=== PATIENT | female | born 1940 | race Two or more races ===

== ENCOUNTER 2019-04-05 06:15 | Emergency (ER) | payer MEDICARE, MEDICAID ==
[~2019-04-05] VITALS: Ht 147.3 cm; Wt 62.6 kg
[2019-04-05] MEDS ORDERED: RANI150T7 PO (06:22)
[2019-04-05] MEDS ORDERED: AMLO10TA7 PO (06:22)
[2019-04-05] MEDS ORDERED: EZET10TA13 PO (06:22)
[2019-04-05] MEDS ORDERED: OXYB5 PO (06:22)
[2019-04-05] MEDS ORDERED: DONE10TA8 PO (06:22)
[2019-04-05] MEDS ORDERED: LISI-662 PO (06:22)
[2019-04-05] MEDS ORDERED: ATOR40TA28 PO (06:22)
[2019-04-05] MEDS ORDERED: ASPI-556 PO (06:22)
[2019-04-05] MEDS ORDERED: SIMV-261 PO (06:26)
[2019-04-05] MEDS ORDERED: HYDR25TA PO (06:26)
[2019-04-05] MEDS ORDERED: METO25 PO (06:26)
[2019-04-05] MEDS: NITROGLYCERIN 0.4 MG SUBLINGUAL TABLET #25 SL ONE ×2 (07:11→07:17)
[2019-04-05] MEDS: ASPIRIN 81 MG CHEWABLE TABLET PO ONE ×2 (07:12→07:17)
[2019-04-05 07:13] LABS: BASOPHILS % (AUTO) 0.8 % (0.0-2.0); EOSINOPHILS % (AUTO) 1.9 % (1.0-6.0); HEMATOCRIT 43.5 % (36-46); HEMOGLOBIN 14.9 g/dL (12.0-16.0); LYMPHOCYTES # (AUTO) 1.9 K/uL (1.0-4.8); LYMPHOCYTES % (AUTO) 29.1 % (22.0-44.0); MEAN CORPUSCULAR HEMOGLOBIN 30.6 pg (26.0-34.0); MEAN CORPUSCULAR HGB CONC 34.3 G/dL (31.0-37.0); MEAN CORPUSCULAR VOLUME 89 fL (80-100); MONOCYTES # (AUTO) 0.7 K/uL (0.1-1.0); MONOCYTES % (AUTO) 10.5 % (2.0-9.0); NEUTROPHILS # (AUTO) 3.8 K/uL (1.8-7.7); NEUTROPHILS % (AUTO) 57.7 % (40.0-70.0); PLATELET COUNT (AUTO) 185 K/uL (150-450); RED BLOOD CELL COUNT(AUTO) 4.87 MIL/uL (4.00-5.20); RED CELL DISTRIBUTION WIDTH 13.2 % (11.5-14.5)
[2019-04-05] MEDS ORDERED: NITROGLYCERIN 2% (1 GM=INCH) PACKET TP ONE (07:15)
[2019-04-05 07:19] LABS: APPEARANCE,URINE CLEAR (CLEAR); BILIRUBIN,URINE NEGATIVE (NEGATIVE); GLUCOSE, URINE (UA) NEGATIVE (NEGATIVE); KETONES,URINE NEGATIVE (NEGATIVE); LEUKOCYTE ESTERASE ,URINE NEGATIVE (NEGATIVE); NITRATE,URINE NEGATIVE (NEGATIVE); OCCULT BLOOD,URINE NEGATIVE (NEGATIVE); PROTEIN,URINE NEGATIVE (NEGATIVE); UROBILINOGEN,URINE 0.2 mg/dL (<=1.0)
[2019-04-05 07:28] LABS: CALCIUM, TOTAL 9.3 mg/dL (8.8-10.5); CREATININE 0.91 mg/dL (0.60-1.30); POTASSIUM 3.9 mmol/L (3.5-5.1)
[2019-04-05 07:52] LABS: ALBUMIN 3.4 g/dL (3.4-5.0); BILIRUBIN,TOTAL 0.6 mg/dL (0.1-1.0); TOTAL PROTEIN, SERUM 6.6 g/dL (6.4-8.2)
[2019-04-05 08:10] VITALS: BP 127/76
== END 2019-04-05 09:30 | disposition left against medical advice (07) ==
LOC: EMS 06:15 → UNDOADMIN 08:27 → 5S 08:27 → EMS 09:30
DX: R07.89 Other chest pain (principal); I10 Essential (primary) hypertension; F03.90 Unspecified dementia, unspecified severity, without behavioral disturbance, psychotic disturbance, mood disturbance, and anxiety; Z86.73 Personal history of transient ischemic attack (TIA), and cerebral infarction without residual deficits; Z79.82 Long term (current) use of aspirin; Z79.899 Other long term (current) drug therapy; Z88.5 Allergy status to narcotic agent; Z95.0 Presence of cardiac pacemaker
CPT/HCPCS: 87040; 93005